=== PATIENT | female | born 1960 | race Asian ===

== ENCOUNTER 2016-09-30 08:53 | Outpatient (CLI) | payer OTHER ==
[2016-09-30 09:13] LABS: PLATELET COUNT 426 K/uL (152-353)
== END 2016-09-30 09:53 | disposition home or self-care (01) ==
LOC: LABW 08:53
PROVIDERS: Nurse Practitioner
DX: N76.0 Acute vaginitis (principal); R73.9 Hyperglycemia, unspecified; N28.89 Other specified disorders of kidney and ureter; D64.9 Anemia, unspecified
CPT/HCPCS: 36415; 80053; 82607; 82728; 83036; 83540; 85027

== ENCOUNTER 2016-12-02 09:32 | Outpatient (CLI) | payer OTHER | END 2016-12-02 19:15 | disposition home or self-care (01) | LOC: US 09:32 | DX: I12.9 Hypertensive chronic kidney disease with stage 1 through stage 4 chronic kidney disease, or unspecified chronic kidney disease (principal); N18.3 Chronic kidney disease, stage 3 (moderate) ==

== ENCOUNTER 2016-12-22 10:41 | Outpatient (CLI) | payer OTHER | END 2016-12-22 19:15 | disposition home or self-care (01) | LOC: MAMMO 10:41 | DX: Z12.31 Encounter for screening mammogram for malignant neoplasm of breast (principal) | CPT/HCPCS: G0202-TC ==

== ENCOUNTER 2016-12-24 14:42 | Outpatient (CLI) | payer OTHER ==
[2016-12-24 15:16] LABS: PLATELET COUNT 337 K/uL (152-353)
[2016-12-24 16:18] LABS: POTASSIUM 4.7 mmol/L (3.6-5.2); SODIUM 136 mmol/L (136-145)
== END 2016-12-24 19:51 | disposition home or self-care (01) ==
LOC: LAB 14:42
PROVIDERS: Nurse Practitioner Family
DX: I10 Essential (primary) hypertension (principal); Z79.899 Other long term (current) drug therapy; I83.93 Asymptomatic varicose veins of bilateral lower extremities; Z51.81 Encounter for therapeutic drug level monitoring
CPT/HCPCS: 80053; 80061; 82306; 82607; 83036; 84436; 84443; 85027

== ENCOUNTER 2017-01-14 09:14 | Outpatient (CLI) | payer OTHER ==
[2017-01-14 11:26] LABS: PLATELET COUNT 364 K/uL (152-353)
[2017-01-14 11:55] LABS: POTASSIUM 4.5 mmol/L (3.6-5.2)
== END 2017-01-14 19:33 | disposition home or self-care (01) ==
LOC: LABW 09:14
PROVIDERS: Internal Medicine Nephrology
DX: I12.9 Hypertensive chronic kidney disease with stage 1 through stage 4 chronic kidney disease, or unspecified chronic kidney disease (principal); N18.3 Chronic kidney disease, stage 3 (moderate); D50.8 Other iron deficiency anemias; E05.80 Other thyrotoxicosis without thyrotoxic crisis or storm; Z79.899 Other long term (current) drug therapy
CPT/HCPCS: 36415; 80053; 81000; 82306; 82575; 82607; 82728; 82746; 83540; 83550; 83735; 83970; 84100; 84156; 84439; 85027

== ENCOUNTER 2017-01-21 11:11 | Outpatient (CLI) | payer OTHER | END 2017-01-21 19:09 | disposition home or self-care (01) | LOC: US 11:11 | DX: R94.6 Abnormal results of thyroid function studies (principal) ==

== ENCOUNTER 2017-02-18 10:56 | Outpatient (CLI) | payer OTHER ==
[2017-02-18 12:42] LABS: POTASSIUM 4.4 mmol/L (3.6-5.2)
== END 2017-02-18 19:48 | disposition home or self-care (01) ==
LOC: LABW 10:56
PROVIDERS: Internal Medicine Nephrology
DX: I12.0 Hypertensive chronic kidney disease with stage 5 chronic kidney disease or end stage renal disease (principal); N18.5 Chronic kidney disease, stage 5; D50.8 Other iron deficiency anemias; E55.9 Vitamin D deficiency, unspecified; D64.89 Other specified anemias; Z11.4 Encounter for screening for human immunodeficiency virus [HIV]; R76.0 Raised antibody titer
CPT/HCPCS: 36415; 80053; 80074; 82570; 82575; 82595; 83516; 84156; 84165; 84540; 86039; 86060; 86140; 86160; 86255; 86592; 86703; 86706; 87340; G0432

== ENCOUNTER 2017-02-19 15:09 | Outpatient (CLI) | payer OTHER | END 2017-02-19 19:06 | disposition home or self-care (01) | LOC: LAB 15:09 | DX: I12.0 Hypertensive chronic kidney disease with stage 5 chronic kidney disease or end stage renal disease (principal); N18.5 Chronic kidney disease, stage 5; D50.8 Other iron deficiency anemias; E55.9 Vitamin D deficiency, unspecified | CPT/HCPCS: 36415; 82595 ==

== ENCOUNTER 2017-04-29 13:08 | Outpatient (CLI) | payer OTHER ==
[2017-04-29 13:42] LABS: PLATELET COUNT 344 K/uL (152-353)
[2017-04-29 14:03] LABS: POTASSIUM 4.6 mmol/L (3.6-5.2); SODIUM 143 mmol/L (136-145)
== END 2017-04-29 19:59 | disposition home or self-care (01) ==
LOC: LAB 13:08
PROVIDERS: Nurse Practitioner Family
DX: D64.89 Other specified anemias (principal); I10 Essential (primary) hypertension; N28.89 Other specified disorders of kidney and ureter; F41.8 Other specified anxiety disorders; R53.83 Other fatigue; E78.4 Other hyperlipidemia; R73.9 Hyperglycemia, unspecified; E55.9 Vitamin D deficiency, unspecified; K58.8 Other irritable bowel syndrome; Z51.81 Encounter for therapeutic drug level monitoring
CPT/HCPCS: 80053; 80061; 82306; 82607; 83036; 84436; 84443; 85027

== ENCOUNTER 2017-07-02 13:00 | Outpatient (CLI) | payer OTHER ==
[2017-07-02 13:42] LABS: PLATELET COUNT 328 K/uL (152-353)
[2017-07-02 14:06] LABS: SODIUM 139 mmol/L (136-145)
== END 2017-07-02 19:10 | disposition home or self-care (01) ==
LOC: LAB 13:00
PROVIDERS: Nurse Practitioner Family
DX: D64.89 Other specified anemias (principal); I10 Essential (primary) hypertension; F41.8 Other specified anxiety disorders; R94.6 Abnormal results of thyroid function studies; Z79.899 Other long term (current) drug therapy; E78.4 Other hyperlipidemia; Z51.81 Encounter for therapeutic drug level monitoring
CPT/HCPCS: 80053; 80061; 83036; 84436; 84443; 85027

== ENCOUNTER 2021-05-22 10:42 | Outpatient (CLI) | payer OTHER | END 2021-05-22 20:16 | disposition home or self-care (01) | LOC: US 10:42 | PROVIDERS: ATTEND Specialist | DX: I10 Essential (primary) hypertension (principal); N18.4 Chronic kidney disease, stage 4 (severe) ==

== ENCOUNTER 2021-05-26 08:13 | Outpatient (CLI) | payer OTHER ==
[2021-05-26 10:01] LABS: PLATELET COUNT 427 K/uL (152-353)
== END 2021-05-26 19:20 | disposition home or self-care (01) ==
LOC: LAB 08:13
PROVIDERS: ATTEND Specialist
DX: I12.9 Hypertensive chronic kidney disease with stage 1 through stage 4 chronic kidney disease, or unspecified chronic kidney disease (principal); N18.4 Chronic kidney disease, stage 4 (severe); R80.8 Other proteinuria; D64.89 Other specified anemias; E87.1 Hypo-osmolality and hyponatremia
CPT/HCPCS: 36415; 80069; 82570; 82575; 82728; 83540; 83550; 84156; 84466; 85027

== ENCOUNTER 2021-05-29 10:21 | Outpatient (CLI) | payer OTHER | END 2021-05-29 22:13 | disposition home or self-care (01) | LOC: MAMMO 10:21 | PROVIDERS: ATTEND Nurse Practitioner Family | DX: Z12.31 Encounter for screening mammogram for malignant neoplasm of breast (principal) ==

== ENCOUNTER 2021-06-18 09:34 | Outpatient (CLI) | payer OTHER ==
[2021-06-18 11:11] LABS: POTASSIUM 4.3 mmol/L (3.6-5.2)
== END 2021-06-18 20:09 | disposition home or self-care (01) ==
LOC: LABW 09:34
PROVIDERS: ATTEND Specialist
DX: R80.8 Other proteinuria (principal); N18.4 Chronic kidney disease, stage 4 (severe); D64.89 Other specified anemias; I12.9 Hypertensive chronic kidney disease with stage 1 through stage 4 chronic kidney disease, or unspecified chronic kidney disease
CPT/HCPCS: 36415; 80069; 80074; 82595; 83516; 84165; 84166; 86060; 86160; 86162; 86255; 86334

== ENCOUNTER 2021-07-04 09:38 | Outpatient (CLI) | payer OTHER ==
[2021-07-04 10:03] LABS: POTASSIUM 4.2 mmol/L (3.6-5.2)
== END 2021-07-04 19:41 | disposition home or self-care (01) ==
LOC: LABW 09:38
PROVIDERS: ATTEND Specialist
DX: N18.30 Chronic kidney disease, stage 3 unspecified (principal)
CPT/HCPCS: 36415; 80069

== ENCOUNTER 2021-07-18 09:10 | Outpatient (CLI) | payer OTHER ==
[2021-07-18 09:52] LABS: PLATELET COUNT 379 K/uL (152-353)
[2021-07-18 10:55] LABS: POTASSIUM 4.2 mmol/L (3.6-5.2)
== END 2021-07-18 19:22 | disposition home or self-care (01) ==
LOC: LABW 09:10
PROVIDERS: ATTEND Specialist
DX: R80.8 Other proteinuria (principal); N18.4 Chronic kidney disease, stage 4 (severe); D64.89 Other specified anemias; I12.9 Hypertensive chronic kidney disease with stage 1 through stage 4 chronic kidney disease, or unspecified chronic kidney disease
CPT/HCPCS: 36415; 80069; 80074; 82595; 83036; 83516; 84165; 85027; 86060; 86160; 86162; 86255; 86334

== ENCOUNTER 2021-08-14 09:13 | Outpatient (CLI) | payer OTHER ==
[2021-08-14 10:10] LABS: POTASSIUM 4.3 mmol/L (3.6-5.2)
== END 2021-08-14 19:17 | disposition home or self-care (01) ==
LOC: LABW 09:13
PROVIDERS: ATTEND Specialist
DX: D50.9 Iron deficiency anemia, unspecified (principal); D64.89 Other specified anemias; N18.30 Chronic kidney disease, stage 3 unspecified
CPT/HCPCS: 36415; 80069; 82272; 82607; 82728; 82746; 83540; 83550; 84466

== ENCOUNTER 2021-11-13 08:41 | Outpatient (CLI) | payer OTHER ==
[2021-11-13 09:06] LABS: PLATELET COUNT 302 K/uL (152-353)
[2021-11-13 09:10] LABS: POTASSIUM 4.4 mmol/L (3.6-5.2)
== END 2021-11-13 19:09 | disposition home or self-care (01) ==
LOC: LABW 08:41
PROVIDERS: ATTEND Specialist
DX: I12.9 Hypertensive chronic kidney disease with stage 1 through stage 4 chronic kidney disease, or unspecified chronic kidney disease (principal); N18.4 Chronic kidney disease, stage 4 (severe); E87.1 Hypo-osmolality and hyponatremia; E87.2 Acidosis
CPT/HCPCS: 36415; 80069; 85027

== ENCOUNTER 2021-11-14 18:51 | Outpatient (CLI) | payer OTHER | END 2021-11-14 20:06 | disposition home or self-care (01) | LOC: LABW 18:51 | PROVIDERS: ATTEND Specialist | DX: D64.89 Other specified anemias (principal) | CPT/HCPCS: 82272 ==

== ENCOUNTER 2021-11-15 08:55 | Outpatient (CLI) | payer OTHER | END 2021-11-15 19:16 | disposition home or self-care (01) | LOC: LABW 08:55 | PROVIDERS: ATTEND Specialist | DX: D64.89 Other specified anemias (principal) | CPT/HCPCS: 82272 ==

== ENCOUNTER 2021-11-16 09:54 | Outpatient (CLI) | payer OTHER | END 2021-11-16 19:20 | disposition home or self-care (01) | LOC: LABW 09:54 | PROVIDERS: ATTEND Specialist | DX: D64.89 Other specified anemias (principal) | CPT/HCPCS: 82272 ==

== ENCOUNTER 2022-07-01 01:55 | Emergency (ER) | payer OTHER ==
[~2022-07-01] VITALS: Ht 170.2 cm; Wt 68.0 kg
[2022-07-01] MEDS ORDERED: PANTOPRAZOLE SO40 M1 PO (02:23)
[2022-07-01] MEDS ORDERED: PRAVASTATIN10 MG PO (02:24)
[2022-07-01 02:39] LABS: PLATELET COUNT 333 K/uL (152-353)
[2022-07-01] MEDS ORDERED: SODI650T PO (03:01)
[2022-07-01] MEDS ORDERED: METH5TAB6 PO (03:03)
[2022-07-01 03:06] LABS: POTASSIUM 4.1 mmol/L (3.6-5.2)
[2022-07-01] MEDS ORDERED: VITAMIN D50000 UNIT PO (03:08)
[2022-07-01] MEDS ORDERED: AMLODIPINE BESYLATE PO (03:11)
[2022-07-01] MEDS ORDERED: HYDRALAZINE50 MG PO (03:12)
[2022-07-01 03:16] LABS: PARTIAL THROMBOPLASTIN TIME 29.8 SECONDS (24.5-33.6)
[2022-07-01 05:00] VITALS: BP 141/72; TEMP 97.7
== END 2022-07-01 05:10 | disposition short-term general hospital (02) ==
LOC: ED 01:55
PROVIDERS: Emergency Medicine
DX: N17.9 Acute kidney failure, unspecified (principal); N18.30 Chronic kidney disease, stage 3 unspecified; I21.4 Non-ST elevation (NSTEMI) myocardial infarction; D63.1 Anemia in chronic kidney disease; K92.2 Gastrointestinal hemorrhage, unspecified; J18.9 Pneumonia, unspecified organism; Z11.52 Encounter for screening for COVID-19; I12.9 Hypertensive chronic kidney disease with stage 1 through stage 4 chronic kidney disease, or unspecified chronic kidney disease
CPT/HCPCS: 36415; 80053; 82272; 82550; 83605; 83735; 83880; 84484; 85027; 85379; 85610; 85730; 87040; 87635; 93005; 96360; 96365; 96375; 99284; J0696; J2270; J2405; U0003

== ENCOUNTER 2022-08-08 12:14 | Outpatient (CLI) | payer OTHER ==
[~2022-08-08 12:14] MED LIST: AMLODIPINE BESYLATE PO; HYDRALAZINE50 MG PO; METH5TAB6 PO; PANTOPRAZOLE SO40 M1 PO; PRAVASTATIN10 MG PO; SODI650T PO; VITAMIN D50000 UNIT PO
== END 2022-08-08 19:08 | disposition home or self-care (01) ==
LOC: LAB 12:14
PROVIDERS: ATTEND Physician Assistant Medical
DX: D64.89 Other specified anemias (principal)
CPT/HCPCS: 85014; 85018

== ENCOUNTER 2022-08-18 03:58 | Emergency (ER) | payer OTHER ==
[~2022-08-18] VITALS: Ht 170.2 cm; Wt 68.0 kg
[2022-08-18 04:29] LABS: POTASSIUM 5.6 mmol/L (3.6-5.2)
[2022-08-18 04:30] LABS: PLATELET COUNT 404 K/uL (152-353)
[2022-08-18 04:59] LABS: PARTIAL THROMBOPLASTIN TIME 32.3 SECONDS (24.5-33.6)
[2022-08-18 08:30] VITALS: BP 120/62; TEMP 998
== END 2022-08-18 08:31 | disposition short-term general hospital (02) ==
LOC: ED 03:58
PROVIDERS: Emergency Medicine Emergency Medical Services
PROC: 0T9B70Z Drainage of Bladder with Drainage Device, Via Natural or Artificial Opening (ICD-10-PCS; principal; 2022-08-18)
PROC: 30233N1 Transfusion of Nonautologous Red Blood Cells into Peripheral Vein, Percutaneous Approach (ICD-10-PCS; 2022-08-18)
DX: R06.09 Other forms of dyspnea (principal); D64.89 Other specified anemias; K92.2 Gastrointestinal hemorrhage, unspecified; N18.6 End stage renal disease; Z99.2 Dependence on renal dialysis; Z95.1 Presence of aortocoronary bypass graft
CPT/HCPCS: 36415; 36430; 51702; 80053; 81000; 82272; 83735; 83880; 84484; 85027; 85610; 85730; 86850; 86900; 86901; 86922; 87040; 87077; 87088; 93005; 96365; 96375; 99285; J0696; J2270; J2405; P9016

== ENCOUNTER 2022-08-27 09:46 | Outpatient (CLI) | payer OTHER | END 2022-08-27 19:02 | disposition home or self-care (01) | LOC: LAB 09:46 | PROVIDERS: ATTEND Physician Assistant Medical | DX: D64.89 Other specified anemias (principal) | CPT/HCPCS: 85014; 85018 ==

== ENCOUNTER 2022-09-24 14:04 | Emergency (ER) | payer OTHER ==
[~2022-09-24] VITALS: Ht 170.2 cm; Wt 68.0 kg
[2022-09-24 14:08] VITALS: TEMP 98.4
[2022-09-24 15:04] LABS: PLATELET COUNT 615 K/uL (152-353)
[2022-09-24 15:27] LABS: POTASSIUM 3.5 mmol/L (3.6-5.2); SODIUM 132 mmol/L (136-145)
[2022-09-24 16:05] LABS: PARTIAL THROMBOPLASTIN TIME 33.4 SECONDS (24.5-33.6)
[2022-09-24 20:16] VITALS: BP 119/75
== END 2022-09-24 21:00 | disposition short-term general hospital (02) ==
LOC: ED 14:04
PROVIDERS: Emergency Medicine
DX: J90 Pleural effusion, not elsewhere classified (principal); N39.0 Urinary tract infection, site not specified; N18.6 End stage renal disease; Z99.2 Dependence on renal dialysis
CPT/HCPCS: 36415; 80053; 81000; 84443; 84484; 85027; 85379; 85610; 85730; 87040; 87086; 87088; 93005; 96374; 99284; J1885

== ENCOUNTER 2022-10-01 23:58 | Emergency (ER) | payer OTHER ==
[~2022-10-01] VITALS: Ht 170.2 cm; Wt 68.0 kg
[2022-10-02 00:57] LABS: PLATELET COUNT 421 K/uL (152-353)
[2022-10-02 01:10] LABS: POTASSIUM 3.6 mmol/L (3.6-5.2); SODIUM 133 mmol/L (136-145)
[2022-10-02 01:13] LABS: PARTIAL THROMBOPLASTIN TIME 32.1 SECONDS (24.5-33.6)
[2022-10-02 03:50] VITALS: BP 139/77; TEMP 98.8
== END 2022-10-02 03:50 | disposition short-term general hospital (02) ==
LOC: ED 23:58
PROVIDERS: Emergency Medicine
DX: J90 Pleural effusion, not elsewhere classified (principal); N18.6 End stage renal disease; Z99.2 Dependence on renal dialysis; Z11.52 Encounter for screening for COVID-19
CPT/HCPCS: 36415; 80053; 80307; 81000; 82150; 83690; 84484; 85027; 85610; 85730; 87088; 87635; 93005; 96374; 96375; 96376; 99284; J2270; J2405; U0003

== ENCOUNTER 2022-11-24 08:59 | Outpatient (CLI) | payer OTHER ==
[2022-11-24 09:38] LABS: PLATELET COUNT 455 K/uL (152-353)
[2022-11-24 09:51] LABS: POTASSIUM 3.4 mmol/L (3.6-5.2)
== END 2022-11-24 18:56 | disposition home or self-care (01) ==
LOC: LABW 08:59
PROVIDERS: ATTEND Thoracic Surgery (Cardiothoracic Vascular Surgery)
DX: N28.89 Other specified disorders of kidney and ureter (principal); R60.0 Localized edema; E87.8 Other disorders of electrolyte and fluid balance, not elsewhere classified; B99.9 Unspecified infectious disease; J90 Pleural effusion, not elsewhere classified
CPT/HCPCS: 36415; 80048; 85027

== ENCOUNTER 2023-02-01 12:10 | Outpatient (CLI) | payer OTHER | END 2023-02-01 19:02 | disposition home or self-care (01) | LOC: LAB 12:10 | PROVIDERS: ATTEND Physician Assistant Medical | DX: M86.28 Subacute osteomyelitis, other site (principal) | CPT/HCPCS: 80202 ==

== ENCOUNTER 2023-02-03 11:43 | Outpatient (CLI) | payer OTHER | END 2023-02-03 18:59 | disposition home or self-care (01) | LOC: LAB 11:43 | PROVIDERS: ATTEND Physician Assistant Medical | DX: M86.8X8 Other osteomyelitis, other site (principal) | CPT/HCPCS: 80202 ==

== ENCOUNTER 2023-02-08 12:08 | Outpatient (CLI) | payer OTHER | END 2023-02-08 20:43 | disposition home or self-care (01) | LOC: LAB 12:08 | PROVIDERS: ATTEND Physician Assistant Medical | DX: M86.8X8 Other osteomyelitis, other site (principal) | CPT/HCPCS: 80202 ==

== ENCOUNTER 2023-02-15 13:22 | Outpatient (CLI) | payer OTHER | END 2023-02-15 19:10 | disposition home or self-care (01) | LOC: LAB 13:22 | PROVIDERS: ATTEND Physician Assistant Medical | DX: M86.8X8 Other osteomyelitis, other site (principal) | CPT/HCPCS: 80202 ==

== ENCOUNTER 2023-02-22 12:38 | Outpatient (CLI) | payer OTHER ==
[2023-02-22 13:07] LABS: PLATELET COUNT 328 K/uL (152-353)
[2023-02-22 13:18] LABS: POTASSIUM 4.4 mmol/L (3.6-5.2)
== END 2023-02-22 22:47 ==
LOC: LAB 12:38
PROVIDERS: ATTEND Physician Assistant Medical
DX: M86.8X8 Other osteomyelitis, other site (principal)
CPT/HCPCS: 36415; 80048; 80202; 85027

== ENCOUNTER 2023-02-23 11:30 | Outpatient (CLI) | payer OTHER | END 2023-02-23 21:14 | LOC: CT 11:30 | PROVIDERS: ATTEND Nurse Practitioner Family | DX: S09.8XXA Other specified injuries of head, initial encounter (principal); W01.0XXA Fall on same level from slipping, tripping and stumbling without subsequent striking against object, initial encounter ==

== ENCOUNTER 2023-02-24 14:22 | Outpatient (CLI) | payer OTHER | END 2023-02-24 19:00 | LOC: LAB 14:22 | PROVIDERS: ATTEND Physician Assistant Medical | DX: M86.8X8 Other osteomyelitis, other site (principal) | CPT/HCPCS: 85652 ==

== ENCOUNTER 2023-03-01 15:07 | Outpatient (CLI) | payer OTHER ==
[2023-03-01 15:31] LABS: PLATELET COUNT 330 K/uL (152-353)
[2023-03-01 16:20] LABS: POTASSIUM 5.2 mmol/L (3.6-5.2)
== END 2023-03-01 19:27 | disposition home or self-care (01) ==
LOC: LAB 15:07
PROVIDERS: ATTEND Physician Assistant Medical
DX: M86.8X8 Other osteomyelitis, other site (principal)
CPT/HCPCS: 80048; 80202; 85027; 85652

== ENCOUNTER 2023-03-08 15:29 | Outpatient (CLI) | payer OTHER ==
[2023-03-08 15:46] LABS: PLATELET COUNT 314 K/uL (152-353)
[2023-03-08 16:10] LABS: POTASSIUM 5.2 mmol/L (3.6-5.2)
== END 2023-03-08 20:12 | disposition home or self-care (01) ==
LOC: LAB 15:29
PROVIDERS: ATTEND Physician Assistant Medical
DX: M86.8X8 Other osteomyelitis, other site (principal)
CPT/HCPCS: 80048; 80202; 85027; 85652